=== PATIENT | male | born 1955 | race Caucasian/White ===

== ENCOUNTER 2016-07-24 07:54 | Inpatient (IN) | payer OTHER ==
[~2016-07-24 07:54] MED LIST: ASPIR 8181 M1 PO; ASPIRIN81 MG; BENICAR20 MG; BENICAR20 MG PO; BENICAR40 M1 PO; CELEBREX200 M1 PO; CELECOXIB200 MG PO; CPAP; CRESTOR5 MG/TAB PO; DOXEPIN HCL25 M1 PO; DOXEPIN HCL50 MG; DULERA 200 MCG/13 G1 INH; EQL FISH OIL 1,1 CA1 PO; FISH OIL 1,0001 CAP; GLUCOSAMINE &1 EAC1 PO; GLUCOSAMINE CH1 EAC6 PO; HYDROCHLOROTH12.5 M2 PO; HYDROCHLOROTHIA25 M1 PO; METOPROLOL TART50 MG PO; MULTIVITAMIN1 TAB PO; MULTIVITAMINS1 EAC6 PO; NAPROSYN500 MG PO; NAPROXEN500 MG; NIASPAN1000 MG PO; NORVASC2.5 M1 PO; PROAIR HFA8.5 GM; PROAIR RESPICL90 MCG INH; PROPAFENONE HC150 MG PO; PROTANDIM PO; QVAR8.7 GM IH; RYTHMOL225 M1 PO; SYNTHROID50 MC1 PO; TOPROL XL100 M1 PO; TOPROL XL50 M1 PO; TRIGLIDE160 MG PO; VITAMIN D-32000 UNIT; VITAMIN D31000 UNI2 PO; VITAMIN D32000 UNI3 PO; VITAMIN D35000 UNI2 PO; WELCHOL625 MG; WELCHOL625 MG PO; XARELTO20 M1 PO
[2016-07-25 05:08] LABS: BASO % 0.2 % (0-2); EOS % 0.2 % (0-7); HCT-HEMATOCRIT 41.3 % (36.0-53.5); HGB-HEMOGLOBIN 13.5 gm/dl (13.5-17.0); IMMATURE GRANULOCYTES ABSOLUTE 0.02 tho/cmm (0-0.03); IMMATURE GRANULOCYTES PERCENT 0.2 % (0-0.3); LYMPH % 9.2 % (20-45); LYMPH ABSOLUTE COUNT 0.9 tho/cmm (0.8-4.5); MCH (MEAN CORPUSCULAR HGB) 29.5 pg (28.0-32.0); MCHC MEAN CORPUSCULAR HGB CONC 32.7 % (32.0-36.0); MCV (MEAN CELL VOLUME) 90.2 fl (82.0-96.0); MEAN PLATELET VOLUME 10.8 cmc (9.4-12.4); MONO % 8.1 % (0-12); MONOCYTE ABSOLUTE COUNT 0.8 tho/cmm (0.0-1.2); NEUTROPHILS % 82.1 % (40-80); PLATELET COUNT 261 tho/cmm (150-450); RED BLOOD COUNT 4.58 mil/cmm (4.40-5.70); RED CELL DISTRIBUTION WIDTH 14.5 % (12.4-16.4); WHITE BLOOD COUNT 9.7 tho/cmm (4.0-10.0)
[2016-07-25] MEDS ORDERED: HYCET ELIXIR PO (09:44)
== END 2016-07-25 17:12 | DRG 621 ==
LOC: SHSB 07:54 → ORW 10:34 → PACU 12:26 → 5WD 13:50
PROVIDERS: ADMIT Surgery
PROC: 0DB64Z3 Excision of Stomach, Percutaneous Endoscopic Approach, Vertical (ICD-10-PCS; principal; 2016-07-24)
DX: E66.01 Morbid (severe) obesity due to excess calories (principal); I48.91 Unspecified atrial fibrillation; I10 Essential (primary) hypertension; E03.9 Hypothyroidism, unspecified; E78.5 Hyperlipidemia, unspecified; E78.00 Pure hypercholesterolemia, unspecified; J44.9 Chronic obstructive pulmonary disease, unspecified; G47.33 Obstructive sleep apnea (adult) (pediatric); J45.30 Mild persistent asthma, uncomplicated; I25.10 Atherosclerotic heart disease of native coronary artery without angina pectoris; R60.0 Localized edema; M54.5 Low back pain; Z68.42 Body mass index [BMI] 45.0-49.9, adult; Z87.891 Personal history of nicotine dependence; Z88.8 Allergy status to other drugs, medicaments and biological substances
CPT/HCPCS: J1170; J1335; J1650; J1885; J2270; J2405; J2550; J2765; J3010; J3480; J7030